=== PATIENT | female | born 1950 | race Caucasian/White ===

== ENCOUNTER → 2017-08-18 | Outpatient (CLI) | payer MEDICARE, OTHER | END | disposition home or self-care (01) | LOC: PCVCCLINIC 14:45 | PROVIDERS: ATTEND Internal Medicine | DX: I50.32 Chronic diastolic (congestive) heart failure (principal); E78.5 Hyperlipidemia, unspecified; G47.33 Obstructive sleep apnea (adult) (pediatric); E11.9 Type 2 diabetes mellitus without complications; K21.9 Gastro-esophageal reflux disease without esophagitis; Z90.710 Acquired absence of both cervix and uterus; Z79.82 Long term (current) use of aspirin; Z88.2 Allergy status to sulfonamides; Z79.899 Other long term (current) drug therapy | CPT/HCPCS: 80061; 93005; G0463 ==

== ENCOUNTER → 2017-09-14 | Outpatient (CLI) | payer MEDICARE, OTHER ==
[~2017-09-14] MED LIST: REGADENOSON 0.4 MG/5 ML DISP.SYRIN. IV ONE
--- NOTE | 2017-09-14 11:02 | PCVCIMAG ---
APPROVED REPORT Study performed: 09/14/2017 08:28:40 EXAM: Comprehensive 2D, Doppler, and color-flow Echocardiogram Patient Location: Echo lab Room #: 2Status: routine BSA: 1.72 HR: 66 bpmBP: 146/62 mmHg Rhythm: NSR Other Information Study Quality: Good Risk Factors: Cardiac Risk Factors: HTN, DM Indications Diabetes Fatigue Hypertension/HDD edema, 2D Dimensions LVEF(%): 57.78 (>50%) IVSd: 8.50 (7-11mm)LVOT Diam: 20.12 (18-24mm) LVDd: 44.25 mm PWd: 8.33 (7-11mm)Ascending Ao: 24.37 (22-36mm) LVDs: 30.87 (25-40mm) Left Atrium: 35.68 (27-40mm) Aortic Root: 23.72 mm LV Single Plane 4CH: 61.68 % LV Single Plane 2CH: 73.85 %Simon's LVEF: 67.76 % Biplane EF: 68.5 % Volumes Left Atrial Volume (Systole) Single Plane 4CH: 43.48 mLSingle Plane 2CH: 38.52 mL Biplane LA Volume: 45.00 mLLA ESV Index: 26.00 mL/m2 Aortic Valve AoV Peak Babatunde.: 1.33 m/s AO Peak Gr.: 7.09 mmHgLVOT Max P.30 mmHg LVOT Max V: 0.76 m/s NATALY Vmax: 1.81 cm2 Mitral Valve E/A Ratio: 0.9 MV Decel. Time: 141.09 ms MV E Max Babatunde.: 0.71 m/s MV A Babatunde.: 0.81 m/s IVRT: 96.89 ms TDI E/Lateral E': 10.14E/Medial E': 11.83 Medial E' Babatunde.: 0.06 m/s Lateral E' Babatunde.: 0.07 m/s Pulmonary Valve PV Peak Babatunde.: 0.84 m/sPV Peak Gr.: 2.79 mmHg Pulmonary Vein P Vein S: 0.52 m/sP Vein A: 0.31 m/s P Vein D: 0.38 m/sP Vein A Dur.: 90.0 msec P Vein S/D Ratio: 1.37 Tricuspid Valve TV Vmax: 0.56 m/s Left Ventricle The left ventricle is normal size. There is normal LV segmental wall motion. There is normal left ventricular wall thickness. Left ventricular systolic function is normal. The left ventricular ejection fraction is within the normal range. LVEF is 65-70%. Grade I - abnormal relaxation pattern. Right Ventricle The right ventricle is normal size. The right ventricular systolic function is normal. Atria The left atrium size is normal. The right atrium size is normal. Aortic Valve The aortic valve is normal in structure. No aortic regurgitation is present. There is no aortic valvular stenosis. Mitral Valve The mitral valve is normal in structure. Trace mitral regurgitation. No evidence of mitral valve stenosis. Tricuspid Valve The tricuspid valve is normal in structure. Trace tricuspid regurgitation. Unable to assess PA pressure. Pulmonic Valve The pulmonary valve is normal in structure. There is no pulmonic valvular regurgitation. Great Vessels The aortic root is normal in size. The ascending aorta is normal in size. IVC is normal in size and collapses with >50% inspiration Pericardium There is no pericardial effusion. There is no pleural effusion. <Conclusion> Left ventricular systolic function is normal. There is normal LV segmental wall motion. LVEF is 65-70%. Grade I diastolic dysfunction The aortic valve is normal in structure. No aortic regurgitation or stenosis The mitral valve is normal in structure. Trace mitral regurgitation. Pulmonary artery pressure could not be reliably ascertained There is no pericardial effusion.
--- NOTE | 2017-09-14 16:43 | PCVCIMAG ---
APPROVED REPORT Exam: Nuclear Stress Test Indication: Dyspnea Patient Location: Out Patient Stress Nurse: Violette Steele RN, Marisa Leong RN [place] Tech:Jorge A Avina NMTCB Ht: 5 ft 2 in Wt: 157 lbs BSA: 1.72 m2 HR: 75 bpm BP: 189/81 mmHg BMI: 28.7 Rhythm: SR, Non specific T Wave Medical History Medical History: Ahe, HTN, CHF, DM Medications: ASA, Lansoprazole, Lisinopril-HCTZ, Allergies: Sulfa Pretest Chest Pain Characteristics: No chest pain Exercise History: Physically active NM EXAM: Myocardial Perfusion REST/STRESS Imaging Protocol: Rest Tc-99m/Stress Tc-99m 1 day Resting Data Rest SPECT myocardial perfusion imaging was performed in supine position 45 minutes following the intravenous injection of 11.1 mCi of Tc-99m Sestamibi. Time of rest injection: 0950 Date: 09/14/2017 Pharmacologic Stress Pharmacologic stress test was performed by injecting Regadenoson 0.4 mg IV push followed by the intravenous injection of 31.9 mCi of Tc-99m Sestamibi. Time of stress injection: 1120 Date: 09/14/2017 Administration Site: Left Hand Gated Stress SPECT was performed 45 minutes after stress injection. The images were gated to evaluate regional wall motion and calculate left ventricular ejection fraction. Study Quality Study: Good Study Data Post stress, the left ventricular ejection was 68%.. SSS: 0 SRS: 0 SDS: 0 TID = 1.11. Perfusion No evidence of stress induced ischemia or prior myocardial infarction. Wall Motion Normal left ventricular size and function with no regional wall motion abnormalities. Nuclear Conclusion No evidence of stress induced ischemia or prior myocardial infarction. Normal left ventricular size and function with no regional wall motion abnormalities. Post stress, the left ventricular ejection was 68%.. No prior study available for comparison. Interpreted by: Roge Martinez MD Electronically Approved: 09/14/2017 16:30:54 Stress Test Details Stress Test: Pharmacologic stress was paired with low level exercise. Reason for pharmacologic stress test: physical limitation. HR Resting HR: 75 bpmMax Heart Rate (APMHR): 151 bpm Max HR Achieved: 127 bpmTarget HR (85% APMHR): 128 bpm % of APMHR: 84 Recovery HR: 93 bpm BP Resting BP: 189/81 mmHg Max BP: 168/74 mmHg ECG Resting ECG: Sinus Rhythm, nonspecific ST-T abnormalities Stress ECG: Sinus Tachycardia, nonspecific ST-T abnormalities Recovery ECG: Sinus Rhythm, nonspecific ST-T abnormalities Clinical Reason for Termination: Completed protocol Stress Symptoms: Dyspnea, Flushed Exercise duration: 4 min 0 sec Symptoms resolved with caffeine. Stress ECG Conclusion ECG: Non-ischemic <Conclusion> ECG: Non-ischemic
== END | disposition home or self-care (01) ==
LOC: PCVCIMAG 08:19
PROVIDERS: ATTEND Internal Medicine
DX: I11.0 Hypertensive heart disease with heart failure (principal); I50.9 Heart failure, unspecified; E11.9 Type 2 diabetes mellitus without complications; R53.83 Other fatigue; R60.0 Localized edema
CPT/HCPCS: 78452; 93017; 93306; A9500; J2785